=== PATIENT | male | born 1945 | race Caucasian/White ===

== ENCOUNTER 2016-10-17 16:30 | Emergency (ER) | payer MEDICARE, OTHER ==
[~2016-10-17] VITALS: Ht 172.7 cm; Wt 90.0 kg
[2016-10-17 16:35] VITALS: Ht 172.7 cm; Wt 90.0 kg
[2016-10-17 19:29] VITALS: TEMP 98.6
[2016-10-17] MEDS ORDERED: ASPIRIN 81 MG TAB PO ONE (20:00)
[2016-10-17] MEDS ORDERED: ALBUTEROL 0.5% (NEB) 2.5 MG/0.5 ML AMP INH STA (20:00)
[2016-10-17] MEDS ORDERED: METHYLPREDNISOLONE 125 MG INJ IV STA (20:00)
[2016-10-17] MEDS ORDERED: HYDROCODONE/APAP (5/325) TAB PO ONE (20:00)
[2016-10-17] MEDS ORDERED: IPRATROPIUM (NEB) 0.5 MG/2.5 ML AMP INH STA (20:00)
[2016-10-17 20:40] LABS: BASOPHIL # 0.1 10^3/ul (0.0-0.1); BASOPHILS % 0.6 % (0.0-2.0); EOSINOPHILS # 0.4 10^3/ul (0.0-0.5); EOSINOPHILS % 4.6 % (0.0-7.0); HEMATOCRIT 44.5 % (42.0-52.0); HEMOGLOBIN 14.1 g/dl (14.0-18.0); LYMPHOCYTES # 2.4 10^3/ul (0.8-2.9); LYMPHOCYTES % 28.4 % (15.0-51.0); MEAN CORPUSCULAR HGB CONC 31.7 g/dl (32.0-37.0); MEAN CORPUSCULAR VOLUME 91.6 fl (82.0-101.0); MEAN PLATELET VOLUME 9.6 fl (7.4-10.4); MONOCYTE # 0.7 10^3/ul (0.3-0.9); MONOCYTES % 8.1 % (0.0-11.0); NEUTROPHILS % 58.1 % (39.0-77.0); PLATELET COUNT 209 10^3/UL (140-415); RED BLOOD COUNT 4.86 10^6/ul (4.70-6.10); RED CELL DISTRIBUTION WIDTH 13.4 % (11.5-14.5); WHITE BLOOD COUNT 8.4 10^3/ul (4.8-10.8)
[2016-10-17 21:00] LABS: ANION GAP 12 (8-16); BLOOD UREA NITROGEN 21 mg/dl (7-20); CALCIUM 9.4 mg/dl (8.4-10.2); CARBON DIOXIDE 30 mmol/L (21-31); CHLORIDE 104 mmol/L (97-110); CREATININE 0.88 mg/dl (0.61-1.24); GLUCOSE 110 mg/dl (70-220); SODIUM 142 mmol/L (135-144)
[2016-10-17 21:10] LABS: B-TYPE NATRIURETIC PEPTIDE 97 PG/ML (0-125)
[2016-10-17 21:14] LABS: TROPONIN-I < 0.012 ng/ml (0.00-0.12)
--- NOTE | 2016-10-17 21:14 | RADRPT ---
PROCEDURE: XR Chest. CLINICAL INDICATION: Asthma exacerbation. TECHNIQUE: 2 frontal views of the chest. COMPARISON: None. FINDINGS: The cardiomediastinal silhouette is within normal limits. Atherosclerotic calcifications in the thor acic aorta. Mild peribronchial cuffing is seen, which can be associated with asthma. The lungs are c lear. No signs of pleural fluid or pneumothorax are seen. The osseous structures and soft tissues ar e unremarkable. IMPRESSION: Asthma. RPTAT: [facility] Physician Hermes Date Time Electronically viewed and signed by Physician Hermes on 10/17/2016 21:13 RS/
[2016-10-17] MEDS ORDERED: FINA5TAB4 PO (21:48)
[2016-10-17] MEDS ORDERED: FLUT1BLS INHALATION (21:49)
[2016-10-17] MEDS ORDERED: TAMS0.4C2 PO (21:49)
[2016-10-17] MEDS ORDERED: IPRA4AER INHALATION (21:50)
[2016-10-17] MEDS ORDERED: DOCU-144 PO (21:51)
[2016-10-17] MEDS ORDERED: ERGO500037 PO (21:52)
[2016-10-17] MEDS ORDERED: ONDA-43 PO (21:54)
[2016-10-17] MEDS ORDERED: HYDR-906 PO (21:55)
[2016-10-17] MEDS ORDERED: LACTINEX PO (21:56)
[2016-10-17] MEDS ORDERED: MULT-105 PO (21:56)
[2016-10-17] MEDS ORDERED: SENN-36 PO (22:03)
[2016-10-17] MEDS ORDERED: IBUP200C PO (22:07)
[2016-10-17 22:15] VITALS: BP 135/60; PULSE 89; RESP 20
--- NOTE | 2016-10-19 12:56 | ERD ---
ER Documentation Chief Complaint Date/Time DATE: 10/19/16 TIME: 12:48 Chief Complaint SOB, SENT [facility], PT ON 3L NC @ HOME HPI 71-year-old man here for wheezing, he does have a history of COPD and has been using albuterol at home without relief. Patient denies chest pain, no fevers or chills, no vomiting or diarrhea, no calf or leg swelling.Patient is requesting opioid analgesics and has a history of chronic pain syndrome. ROS All systems reviewed and are negative except as per history of present illness. Medications Home Meds Reported Medications Ibuprofen* (Ibuprofen*) 200 Mg Capsule, 400 MG PO Q12H Y for PAIN LEVEL 4-6/10, CAP 10/17/16 Ibuprofen* (Ibuprofen*) 200 Mg Capsule, 200 MG PO Q12H Y for MILD PAIN LEVEL 1-3 , CAP 10/17/16 Sennosides* (Senokot*) 8.6 Mg Tablet, 2 TAB PO Q24H, TAB 10/17/16 Lactobacillus Acidophilus* (Lactinex*) 1 Tab Chew, 1 TAB PO TID, TAB 10/17/16 Multivitamin with Minerals (Multivitamins with Minerals) 1 Each Tablet, 1 EACH PO DAILY, TAB 10/17/16 Hydrocodone/Acetaminophen (Omer 5-325 Tablet) 1 Each Tablet, 1 EACH PO Q4H Y for PRN, TAB 10/17/16 Ondansetron Hcl* (Zofran*) 4 Mg Tab, 4 MG PO Q6H Y for NAUSEA AND OR VOMITING, TAB 10/17/16 Ergocalciferol (Vitamin D2) (VITAMIN D2) 50,000 Unit Capsule, 26887 UNIT PO Q SUN, CAP 10/17/16 Docusate Sodium* (Colace*) 100 Mg Capsule, 100 MG PO Q12H, #60 CAP 10/17/16 Albuterol/Ipratropium* (Combivent Respimat*) 20-100 Mcg/Inh - 4 Gm Aer.w.adap, 1 PUFF INHALATION QID, #1 INHALER 10/17/16 Fluticasone/Vilanterol (Breo Ellipta 200-25 Mcg INH) 1 Each Blst.w.dev, 1 PUFF INHALATION DAILY, #1 INHALER 10/17/16 Tamsulosin Hcl* (Tamsulosin Hcl*) 0.4 Mg Cap.er.24h, 0.8 MG PO HS, CAP 10/17/16 Finasteride* (Finasteride*) 5 Mg Tablet, 5 MG PO DAILY, TAB 10/17/16 Allergies Allergies: Coded Allergies: No Known Allergy (Unverified , 10/17/16) PMhx/Soc COPD, hypertension, BPH History of Surgery: No Anesthesia Reaction: No Hx Neurological Disorder: No Hx Respiratory Disorders: Yes (copd) Hx Cardiac Disorders: Yes (htn) Hx Psychiatric Problems: No Hx Miscellaneous Medical Probl: No Hx Alcohol Use: No Hx Substance Use: No Hx Tobacco Use: Yes Smoking Status: Former smoker FmHx Family History: No diabetes Physical Exam Vitals Vital Signs Date Time Temp Pulse Resp B/P Pulse Ox O2 Delivery O2 Flow Rate FiO2 10/17/16 22:15 89 20 135/60 94 Room Air 10/17/16 20:21 71 26 91 21 10/17/16 19:40 Nasal Cannula 3.0 10/17/16 19:29 98.6 84 20 121/58 93 Room Air 10/17/16 16:35 98.1 88 18 112/53 92 Physical Exam Const: [Well-developed well-nourished man, no apparent distress, nontoxic in appearance, afebrile] Head: Atraumatic Eyes: Normal Conjunctiva ENT: Normal External Ears, Nose and Mouth. Neck: Full range of motion..~ No meningismus. Resp: Scattered wheezes bilaterally, no crackles or stridor Cardio: Regular rate and rhythm, no murmurs Abd: Soft, non tender, non distended. Normal bowel sounds Skin: No petechiae or rashes Back: No midline or flank tenderness Ext: 3+ pitting edema in the lower extremities bilaterally Neur: Awake and alert Psych: Normal Mood and Affect Result Diagram: 10/17/16 2030 10/17/16 2030 Results 24 hrs Laboratory Tests Test 10/17/16 20:30 White Blood Count 8.410^3/ul Red Blood Count 4.8610^6/ul Hemoglobin 14.1g/dl Hematocrit 44.5% Mean Corpuscular Volume 91.6fl Mean Corpuscular Hemoglobin 29.0pg Mean Corpuscular Hemoglobin Concent 31.7g/dl Red Cell Distribution Width 13.4% Platelet Count 27236^3/UL Mean Platelet Volume 9.6fl Neutrophils % 58.1% Lymphocytes % 28.4% Monocytes % 8.1% Eosinophils % 4.6% Basophils % 0.6% Nucleated Red Blood Cells % 0.0/100WBC Neutrophils # (Manual) 4.910^3/ul Lymphocytes # 2.410^3/ul Monocytes # 0.710^3/ul Eosinophils # 0.410^3/ul Basophils # 0.110^3/ul Nucleated Red Blood Cells # 0.010^3/ul Sodium Level 142mmol/L Potassium Level 4.0mmol/L Chloride Level 104mmol/L Carbon Dioxide Level 30mmol/L Anion Gap 12 Blood Urea Nitrogen 21mg/dl Creatinine 0.88mg/dl Glucose Level 110mg/dl Calcium Level 9.4mg/dl Troponin I < 0.012ng/ml B-Type Natriuretic Peptide 97PG/ML Current Medications Medications (Trade) Dose Ordered Sig/Dwayne Route PRN Reason Start Time Stop Time Status Last Admin Dose Admin Acetaminophen/ Hydrocodone Bitart (Omer (5/325)) 1 tab ONCE ONCE PO 10/17/16 20:00 10/17/16 20:03 DC 10/17/16 20:18 Albuterol (Proventil 0.5% (Neb)) 10 mg ONCE STAT INH 10/17/16 20:00 10/17/16 20:03 DC 10/17/16 20:14 Ipratropium [place] (Atrovent 0.02% (Neb)) 1 mg ONCE STAT INH 10/17/16 20:00 10/17/16 20:03 DC 10/17/16 20:13 Methylprednisolone Sodium Succinate (Solu-Medrol) 125 mg ONCE STAT IV 10/17/16 20:00 10/17/16 20:03 DC 10/17/16 20:18 Aspirin (Aspirin) 324 mg ONCE ONCE PO 10/17/16 20:00 10/17/16 20:03 DC 10/17/16 20:18 Procedures/MDM IV line was established patient was placed on bus driver/monitor rhythm strip revealed a sinus rhythm at about 80 bpm with upright P and T waves. Patient was afebrile. I administered aspirin 324 mg p.o. for cardioprotective measures, albuterol 10 mg via nebulizer, ipratropium 1 mg via nebulizer, methylprednisolone 124 mg IV 1 and Percocet 1 tablet p.o. for complaints of pain CBC was normal, electrolytes normal, troponin negative, BNP negative. One AP view of the chest performed, read by me reveals no acute infiltrates, normal mediastinum, sharp costophrenic and cardiac borders, no air under the diaphragm. Otherwise unremarkable chest x-ray. Differential diagnoses considered, included but not limited to acute coronary syndrome, pulmonary embolism, aortic dissection, abdominal aortic aneurysm, sepsis, stroke, meningitis, encephalitis, pneumonia, appendicitis, cholecystitis , bowel obstruction, pyelonephritis, nephrolithiasis, cystitis, as well as metabolic, hematologic, and electrolyte abnormalities. As well as abscess, cellulitis, fractures, and dislocations. Patient feels much better at this time, and vital signs are normal, symptoms have improved. I did give strict instructions to return to the ED if symptoms continue or worsen, patient will otherwise follow-up with primary care physician. Patient understood instructions and agreed to plan. Disclaimer: Inadvertent spelling and grammatical errors are likely due to EHR/ dictation software use and do not reflect on the overall quality of patient care. Also, please note that the electronic time recorded on this note does not necessarily reflect the actual time of the patient encounter. Departure Diagnosis: Primary Impression: COPD (chronic obstructive pulmonary disease) COPD type: COPD with acute exacerbation Qualified Code: J44.1 - Chronic obstructive pulmonary disease with acute exacerbation Additional Impression: Peripheral edema Condition: Good Patient Instructions: Copd Flare MARIMAR PULLIAM MD Oct 19, 2016 12:56
== END 2016-10-17 23:10 | disposition home or self-care (01) ==
LOC: E/R 16:30
DX: J44.1 Chronic obstructive pulmonary disease with (acute) exacerbation (principal); I10 Essential (primary) hypertension; R60.0 Localized edema; Z87.891 Personal history of nicotine dependence
CPT/HCPCS: 71010; 80048; 83880; 84484; 85025; 94644; 96374; 99284; J2930